=== PATIENT | female | born 1995 | race Two or more races ===

== ENCOUNTER 2017-05-24 20:45 | Emergency (ER) | payer BC, OTHER ==
[~2017-05-24] VITALS: Ht 157.5 cm; Wt 57.2 kg
[~2017-05-24 20:45] MED LIST: ACET-704 PO; IBUP-1060 PO
[2017-05-24 21:30] LABS: BILIRUBIN,URINE NEGATIVE (NEG); GLUCOSE,URINE NEGATIVE (NEG); NITRITE,URINE NEGATIVE (NEG); PH,URINE 6.5; PROTEIN,URINE NEGATIVE (NEG-TRACE)
[2017-05-24 21:37] LABS: BACTERIA,URINE 0 /HPF (0-FEW); RBC,URINE TNTC /HPF (0-2); SQUAMOUS EPITHELIAL CELL,UR FEW /LPF; WBC,URINE OCC /HPF (0-4)
[2017-05-24] MEDS ORDERED: NAPR500T PO (21:54)
[2017-05-24] MEDS ORDERED: DOXY100C2 PO (21:54)
--- NOTE | 2017-05-24 21:55 | PHYS DOC ---
Past Medical History Past Medical History: Asthma Past Surgical History: No Surgical History Additional Information: non smoker Alcohol Use: None Drug Use: None Adult General Chief Complaint Chief Complaint: VAGINAL BLEEDING HPI HPI Patient is a 21 year old female who presents with heavy irregular menses. She had her normal menses May 11 through May 15. That she states she will be started with spotting and cramping May 22. She's been having some spotting and cramping ever since. She is a LC 1 patient. She is not on control. She denies any nausea vomiting. No fever or chills. No urinary complaints of dysuria or hematuria. No diarrhea. She states that she stopped her control pill 2 months ago as her trying to get . Review of Systems Review of Systems Constitutional: Denies fever or chills Eyes: Denies change in visual acuity, redness, or eye pain HENT: Denies nasal congestion or sore throat Respiratory: Denies cough or shortness of breath Cardiovascular: No chest pain again GI: Denies abdominal pain, nausea, vomiting, bloody stools or diarrhea : Denies dysuria or hematuria; irregular menses. Musculoskeletal: Denies back pain or joint pain Integument: Denies rash or skin lesions Neurologic: Denies headache, focal weakness or sensory changes Current Medications Current Medications Current Medications Medications (Trade) Dose Ordered Sig/Seferino Start Time Stop Time Status Last Admin Dose Admin Ceftriaxone Sodium (Rocephin Im) 250 mg STK-MED ONCE 05/24/17 21:58 05/24/17 21:59 DC Doxycycline Hyclate (Vibra-Tab) 100 mg 1X ONCE 05/24/17 22:15 05/24/17 22:16 DC 05/24/17 22:00 100 MG Allergies Allergies Allergies Coded Allergies Type Severity Reaction Last Updated Verified No Known Drug Allergies 03/26/14 No Physical Exam Physical Exam Constitutional: Well developed, well nourished, no acute distress, non-toxic appearance. HENT: Normocephalic, atraumatic, bilateral external ears normal, oropharynx moist, no oral exudates, nose normal. Eyes: PERRLA, EOMI, conjunctiva normal, no discharge. Neck: Normal range of motion, no tenderness, supple, no stridor. Cardiovascular:Heart rate regular rhythm, no murmur Lungs & Thorax: Bilateral breath sounds clear to auscultation Abdomen: Bowel sounds normal, soft, no tenderness, no masses, no pulsatile masses. : [employer] Apprentice present. External genitalia is normal no lesions or sores. Minimal blood in the vaginal vault. Positive cervical motion tenderness. No adnexal masses or tenderness. Skin: Warm, dry, no erythema, no rash. Back: No tenderness, no CVA tenderness. Extremities: No tenderness, no cyanosis, no clubbing, ROM intact, no edema. Neurologic: Alert and oriented X 3, normal motor function, normal sensory function, no focal deficits noted. Psychologic: Affect normal, judgement normal, mood normal. Current Patient Data Vital Signs Vital Signs Date Time Temp Pulse Resp B/P (MAP) Pulse Ox O2 Delivery O2 Flow Rate FiO2 05/24/17 22:03 64 20 116/77 (90) 100 Room Air 05/24/17 21:00 98.7 98.7 Lab Values Laboratory Tests Test 05/24/17 21:00 05/24/17 21:07 Urine Collection Type Unknown Urine Color Yellow Urine Clarity Clear Urine pH 6.5 Urine Specific [place] 1.025 Urine Protein Negative mg/dL (NEG-TRACE) Urine Glucose (UA) Negative mg/dL (NEG) Urine Ketones (Stick) Negative mg/dL (NEG) Urine Blood Large (NEG) Urine Nitrite Negative (NEG) Urine Bilirubin Negative (NEG) Urine Urobilinogen Dipstick 1.0 mg/dL (0.2 mg/dL) Urine Leukocyte Esterase Negative (NEG) Urine RBC Tntc /HPF (0-2) Urine WBC Occ /HPF (0-4) Urine Squamous Epithelial Cells Few /LPF Urine Bacteria 0 /HPF (0-FEW) Urine Mucus Marked /LPF POC Urine HCG, Qualitative Hcg negative (Negative) Microbiology 05/24/17 Wet Prep - Final, Complete Course & Med Decision Making Course & Med Decision Making Evaluated patient upon my arrival on shift. UCG negative. Pelvic exam done with cervical motion tenderness. Electively treated for STI with Rocephin IM here and first dose of doxycycline. Wet prep: results returned after patient left. POS clue cells but no trich. Patient was instructed to follow up with her OB/ [employer]. There was no discharge to do not feel the patient needed emergent treatment at the clue cells. I have spoken with the patient and/or caregivers. I have explained the patient' s condition, diagnosis and treatment plan based on the information available to me at this time. I have answered the patient's and/or caregiver's questions and addressed any concerns. The patient and/or caregivers have as good an understanding of the patient's diagnosis, condition and treatment plan as can be expected at this point. The patient's condition is stable and appropriate for discharge from the emergency department. The patient will pursue further outpatient evaluation with the primary care physician or other designated or consulting physician as outlined in the discharge instructions. The patient and/or caregivers are agreeable to this plan of care and follow-up instructions have been explained in detail. The patient and/or caregivers have received these instructions in written format and have expressed an understanding of the discharge instructions. The patient and/or caregivers are aware that any significant change in condition or worsening of symptoms should prompt an immediate return to this or the closest emergency department or a call to 911. Dragon Disclaimer Dragon Disclaimer This electronic medical record was generated, in whole or in part, using a voice recognition dictation system. Departure Departure Impression: Primary Impression: Dysfunctional uterine bleeding Additional Impression: Cervicitis Disposition: 01 HOME, SELF-CARE Condition: STABLE Referrals: DINORA KURTZ (PCP) Patient Instructions: Cervicitis, Uterine Bleeding, Dysfunctional Additional Instructions: You have have cultures that are pending. You need to follow up with your [employer] doctor to find out the culture results. You were treated for cervical infection however here. Finished the antibiotic pills to complete that treatment. Scripts Naproxen (NAPROSYN) 500 Mg Tablet 1 TAB PO BID, #30 TAB 1 Refill Prov: GUNJAN AGUIRRE MD 05/24/17 Doxycycline Hyclate (DOXYCYCLINE HYCLATE) 100 Mg Capsule 1 CAP PO BID, #14 CAP Prov: GUNJAN AGUIRRE MD 05/24/17 Problem Qualifiers GUNJAN AGUIRRE MD May 24, 2017 21:55
[2017-05-24] MEDS ORDERED: cefTRIAXone IM 250 MG VIAL IM ONE ×2 (21:58→22:30)
[2017-05-24 22:03] VITALS: BP 116/77
[2017-05-24] MEDS ORDERED: cefTRIAXone IM 1 GM VIAL IM ONE (22:15)
[2017-05-24] MEDS ORDERED: DOXYCYCLINE HYCLATE 100 MG TABLET PO ONE (22:15)
== END 2017-05-24 22:15 | disposition home or self-care (01) ==
LOC: ER 20:45
DX: N93.8 Other specified abnormal uterine and vaginal bleeding (principal); N72 Inflammatory disease of cervix uteri; J45.909 Unspecified asthma, uncomplicated
CPT/HCPCS: 81001; 81025; 87491; 87591; 96372; 99284; J0696; Q0111

== ENCOUNTER 2017-09-12 20:21 | Emergency (ER) | payer OTHER ==
[2017-09-12 21:34] LABS: INFLUENZA A PATIENT POSITIVE (NEGATIVE); INFLUENZA B PATIENT NEGATIVE (NEGATIVE); OBC FLU VALID
[2017-09-12] MEDS: BENZONATATE 100 MG CAPSULE. PO ×2 (21:41)
[2017-09-12] MEDS: ACETAMINOPHEN 500 MG TABLET PO ×2 (21:41)
[2017-09-12] MEDS: IBUPROFEN 800 MG TABLET. PO ×2 (21:41)
== END 2017-09-12 21:45 | disposition home or self-care (01) ==
LOC: ER 20:21
DX: J09.X2 Influenza due to identified novel influenza A virus with other respiratory manifestations (principal); J45.909 Unspecified asthma, uncomplicated
CPT/HCPCS: 87804; 87804-59; 99284